=== PATIENT | female | born 1970 | race African-American/Black ===

== ENCOUNTER 2021-08-09 11:04 | Emergency (ER) | payer OTHER ==
[2021-08-09 11:37] VITALS: TEMP 98.3; BMI 34.3
[2021-08-09] MEDS ORDERED: ACETAMINOPHEN 500 MG TABLET (FP) PO ONE (12:17)
[2021-08-09] MEDS ORDERED: ACETAMINOPHEN 500 MG TABLET (FP) ONE (12:18)
[2021-08-09 13:05] VITALS: BP 170/84
[2021-08-09 13:08] VITALS: PULSE 81
[2021-08-10 13:07] LABS: SARS-CoV-2 NAA Not Detected (Not Detected)
== END 2021-08-09 13:23 ==
LOC: JERFT 11:04
DX: J02.9 Acute pharyngitis, unspecified (principal)
CPT/HCPCS: 87651; 87804; 99284-25; C9803; U0003; U0005

== ENCOUNTER 2021-10-25 08:16 | Emergency (ER) | payer OTHER ==
[2021-10-25 08:27] VITALS: BP 158/90; PULSE 89; TEMP 99.5; BMI 36.1
[2021-10-25 09:19] LABS: HEMATOCRIT 39.1 % (32.4-45.2); HEMOGLOBIN 13.5 G/dL (10.7-15.3); MCH 29.2 pg (25.7-33.7); MCHC 34.6 g/dl (32.0-36.0); MEAN CELL VOLUME 84.7 fl (80-96); MEAN PLT VOLUME 7.4 fl (7.5-11.1); PLATELET COUNT 255.5 10^3/uL (134-434); RBC 4.62 10^6/uL (3.60-5.2); RDW 15.4 % (11.6-15.6); WHITE BLOOD COUNT 4.8 10^3/uL (4.0-10.8)
[2021-10-25 09:26] LABS: ALBUMIN 4.3 g/dl (3.4-5.0); BILIRUBIN,TOTAL 0.6 mg/dl (0.2-1); CALCIUM 9.7 mg/dl (8.5-10); CREATININE 0.8 mg/dl (0.55-1.3); TOT PROT 7.8 g/dl (6.4-8.2)
[2021-10-25] MEDS ORDERED: IBUPROFEN 600 MG TABLET (FP) PO ONE ×2 (09:46→09:57)
== END 2021-10-25 10:27 | disposition home or self-care (01) ==
LOC: FER 08:16
DX: B34.9 Viral infection, unspecified (principal)
CPT/HCPCS: 36415; 71045-TC-FY; 80053; 84484; 84703; 85025; 93005; 99283-25; C9803-CS; U0003; U0005

== ENCOUNTER 2023-02-02 09:48 | Emergency (ER) | payer OTHER ==
[2023-02-02 10:12] VITALS: BP 188/106; PULSE 88; RESP 16; TEMP 98.8; BMI 38.3
== END 2023-02-02 10:33 | disposition home or self-care (01) ==
LOC: FER 09:48
DX: R53.81 Other malaise (principal); R53.83 Other fatigue; B34.9 Viral infection, unspecified; Z20.822 Contact with and (suspected) exposure to COVID-19
CPT/HCPCS: 0241U-QW; 99283-25

== ENCOUNTER 2023-06-01 10:17 | Emergency (ER) | payer OTHER ==
[2023-06-01 10:55] VITALS: BP 150/86; PULSE 88; RESP 16; TEMP 97.7; BMI 36.3
[2023-06-01] MEDS ORDERED: ACETAMINOPHEN 500 MG TABLET (FP) PO ONE (10:59)
[2023-06-01] MEDS ORDERED: guaiFENesin/D-METHORPHAN HB 10 ML UNIT-DOSE CUPS PO ONE (11:00)
[2023-06-01] MEDS ORDERED: ACETAMINOPHEN 500 MG TABLET (FP) ONE (11:21)
[2023-06-01] MEDS ORDERED: guaiFENesin/D-METHORPHAN HB 10 ML UNIT-DOSE CUPS ONE (11:21)
== END 2023-06-01 12:23 | disposition home or self-care (01) ==
LOC: FER 10:17
DX: R05.9 Cough, unspecified (principal); R09.81 Nasal congestion; R50.9 Fever, unspecified; J02.9 Acute pharyngitis, unspecified; M79.10 Myalgia, unspecified site; J06.9 Acute upper respiratory infection, unspecified; Z20.822 Contact with and (suspected) exposure to COVID-19
CPT/HCPCS: 0241U-QW; 99283-25